=== PATIENT | male | born 1975 | race Caucasian/White ===

== ENCOUNTER 2023-11-18 06:40 | Inpatient (IN) | payer MEDICAID ==
[~2023-11-18] VITALS: Ht 175.3 cm; Wt 104.3 kg
[2023-11-18] VITALS (8 sets, daily range): BP systolic 125–148; BP diastolic 73–81; PULSE 82–108; RESP 18–22; TEMP 96.8–98.2; O2SAT 95–97
[2023-11-18] MEDS: METHYLPREDNISOLONE SOD SUCC 125MG/2ML (ACT-O-VIAL) IV STA (07:02)
[2023-11-18] MEDS: ASPIRIN 81MG TABLET PO ONE (07:02)
[2023-11-18] MEDS: IPRATROPIUM BROMIDE (0.02%) 0.5MG/2.5ML NEB HHN STA (07:32)
[2023-11-18] MEDS: ALBUTEROL (0.083%) 2.5MG/3ML NEB HHN SCH (07:32)
[2023-11-18 07:51] LABS: CHLORIDE 88 mEq/L (98-107); POTASSIUM 3.4 mEq/L (3.5-5.1); SODIUM 125 mEq/L (136-145)
[2023-11-18 07:52] LABS: CARBON DIOXIDE 30 mEq/L (21-32)
[2023-11-18 07:53] LABS: CALCIUM 9.1 mg/dL (8.7-10.4)
[2023-11-18 07:56] LABS: PARTIAL THROMBOPLASTIN TIME 29.6 sec (23.4-31.0); PROTHROMBIN TIME 11.4 sec (9.6-11.0)
[2023-11-18 07:57] LABS: CREATININE 0.7 mg/dL (0.6-1.3); GLUCOSE 135 mg/dL (70-105)
[2023-11-18 07:58] LABS: LACTIC ACID 2.5 mmol/L (0.4-2.0); TROPONIN I HIGH SENSITIVITY 13 ng/L (3.0-53); UREA NITROGEN BLOOD 17 mg/dL (9-23)
[2023-11-18] MEDS: AZITHROMYCIN 500MG/250ML 250 ML IV SCH (08:01)
[2023-11-18 08:14] LABS: BASOPHILS % 0.3 % (0.0-2.0); DIFFERENTIAL COMMENT 0; HEMATOCRIT. 31.5 % (42.0-52.0); HEMOGLOBIN. 10.6 g/dL (14.0-18.0); LYMPHOCYTES % 10.7 % (20.0-50.0); MEAN CORPUSCULAR HEMOGLOBIN 24.8 pg (28.0-32.0); MEAN CORPUSCULAR HGB CONC 33.6 g/dL (31.0-37.0); MEAN CORPUSCULAR VOLUME 73.9 fL (80.0-94.0); MEAN PLATELET VOLUME 7.5 fl (7.4-10.4); MONOCYTES % 1.4 % (2.0-8.0); NEUTROPHILS % 87.6 % (40.0-76.0); PLATELET 264 x1000/uL (130-400); RED BLOOD CELL COUNT 4.26 mill/uL (4.7-6.1); RED CELL DISTRIBUTION WIDTH 17.6 % (11.6-14.6); WHITE BLOOD COUNT 7.5 x1000/uL (4.5-11.0)
[2023-11-18 08:44] LABS: ALANINE AMINOTRANSFERASE 54 IU/L (10-49); ASPARTATE AMINOTRANSFERASE 113 IU/L (<34)
[2023-11-18 08:45] LABS: ALBUMIN 3.9 g/dL (3.2-4.8); BILIRUBIN DIRECT 0.4 mg/dL (<=3.0); BILIRUBIN TOTAL 0.7 mg/dL (0.1-1.0); PROTEIN TOTAL 7.1 g/dL (6.0-8.3)
[2023-11-18] MEDS: CEFTRIAXONE 2GM/50ML 50 ML IV ONE (09:05)
[2023-11-18 09:11] LABS: BG BASE EXCESS 5.8 mmol/L (-2.0-2.0); BG CARBOXYHEMOGLOBIN 0.3 % (0.5-1.5); BG DEOXYHEMOGLOBIN 2.3 % (0.0-5.0); BG FRACTION INSPIRED OXYGEN 21; BG HCO3 ACT 29.6 mmol/L (22.0-26.0); BG METHEMOGLOBIN 0.5 % (0.0-1.5); BG OXYGEN SATURATION 97.7 % (92.0-98.5); BG OXYHEMOGLOBIN 96.9 % (94.0-97.0); BG PCO2 40.2 mmHg (35.0-45.0); BG PH 7.485 (7.350-7.450); BG PO2 90.1 mmHg (75.0-100.0); BG SAMPLE SITE RIGHT BRACHIAL; BG VENT MODE ROOM AIR
[2023-11-18] MEDS: SODIUM CHLORIDE 0.9% 1000ML BAG (SEPSIS BOLUS) IV ONE (09:44)
[2023-11-18] MEDS ORDERED: NITROGLYCERIN 50MG PREMIX 250 ML IV ONE (10:00)
[2023-11-18 10:19] LABS: CLARITY URINE CLEAR (CLEAR); COLOR URINE DARK YELLOW (YELLOW); GLUCOSE URINE NEGATIVE (NEGATIVE); KETONES URINE NEGATIVE (NEGATIVE); LEUKOCYTE ESTERASE URINE 1+ (NEGATIVE); NITRITE URINE NEGATIVE (NEGATIVE); OCCULT BLOOD URINE TRACE (NEGATIVE); PH URINE 6.5 (4.5-8.0); PROTEIN URINE 2+ (NEGATIVE); SPECIFIC GRAVITY URINE 1.017 (1.005-1.030); UROBILINOGEN URINE >8.0 E.U./dL (0.2-1.0)
[2023-11-18 10:28] LABS: TROPONIN I HIGH SENSITIVITY 5 ng/L (3.0-53)
[2023-11-18 10:34] LABS: COARSE GRANULAR CASTS URINE 0-5 /lpf; FINE GRANULAR CASTS URINE 0-5 /lpf
[2023-11-18 10:42] LABS: SQUAMOUS EPITHELIAL CELL URINE FEW /lpf (RARE/1+); WBC URINE 0-2 /hpf (0-2)
[2023-11-18 10:43] LABS: RBC URINE 0-2 /hpf (0-2)
[2023-11-18 10:44] LABS: BACTERIA URINE TRACE
[2023-11-18] MEDS: LORAZEPAM 2MG/ML INJ IV NR (10:47)
[2023-11-18] MEDS ORDERED: ONDANSETRON HCL 4MG/2ML INJ IV PRN (16:00)
[2023-11-18] MEDS ORDERED: KETOROLAC 15MG/ML VIAL IV PRN (16:00)
[2023-11-18] MEDS: IPRATROPIUM/ALBUTEROL 0.5-3(2.5)MG/3ML NEB HHN SCH (21:12)
[2023-11-19] VITALS (10 sets, daily range): BP systolic 115–153; BP diastolic 85–90; PULSE 79–98; RESP 18–20; TEMP 96.1–98; O2SAT 95–99
[2023-11-19] MEDS: VANCOMYCIN 1,750 MG in DEXT 5% WATER 500 ML IV NR (02:07)
[2023-11-19] MEDS: ENOXAPARIN 30MG/0.3ML SYR SUBCUT SCH (08:54)
[2023-11-19] MEDS: CEFTRIAXONE 1GM/50ML 50 ML IV SCH (08:54)
[2023-11-19] MEDS: VANCOMYCIN 1.25GM PMX (XELLIA) 250 ML IV SCH (09:12)
[2023-11-19] MEDS ORDERED: LEVO750T68 MT (14:04)
[2023-11-19 16:56] LABS: HEMATOCRIT. 32.9 % (42.0-52.0); HEMOGLOBIN. 10.8 g/dL (14.0-18.0); MEAN CORPUSCULAR HEMOGLOBIN 24.4 pg (28.0-32.0); MEAN CORPUSCULAR HGB CONC 32.9 g/dL (31.0-37.0); MEAN CORPUSCULAR VOLUME 73.9 fL (80.0-94.0); MEAN PLATELET VOLUME 7.7 fl (7.4-10.4); PLATELET 317 x1000/uL (130-400); RED BLOOD CELL COUNT 4.45 mill/uL (4.7-6.1); RED CELL DISTRIBUTION WIDTH 18.3 % (11.6-14.6); WHITE BLOOD COUNT 15.1 x1000/uL (4.5-11.0)
[2023-11-19 17:05] LABS: DIFFERENTIAL COMMENT 1
[2023-11-19 17:11] LABS: CHLORIDE 96 mEq/L (98-107); SODIUM 132 mEq/L (136-145)
[2023-11-19 17:12] LABS: CALCIUM 8.8 mg/dL (8.7-10.4); CARBON DIOXIDE 30 mEq/L (21-32)
[2023-11-19 17:17] LABS: CREATININE 0.6 mg/dL (0.6-1.3); GLUCOSE 140 mg/dL (70-105); UREA NITROGEN BLOOD 20 mg/dL (9-23)
[2023-11-19 17:39] LABS: HEPATITIS B SURFACE ANTIGEN NEGATIVE (Negative)
[2023-11-19 18:00] LABS: HEPATITIS C AB NON REACTIVE (Neg) (Negative)
[2023-11-19 18:03] LABS: NUCLEATED RED BLOOD CELLS 2 /100 WBC; PLATELET ESTIMATE NORMAL
[2023-11-20] VITALS: BP 152/83; PULSE 86; RESP 20; TEMP 97.9
[2023-11-20 04:00] VITALS: BP 147/87; PULSE 87; RESP 20; TEMP 96.9
[2023-11-20 07:35] LABS: CHLORIDE 96 mEq/L (98-107); SODIUM 136 mEq/L (136-145)
[2023-11-20 07:36] LABS: CARBON DIOXIDE 31 mEq/L (21-32)
[2023-11-20 07:37] LABS: CALCIUM 8.8 mg/dL (8.7-10.4)
[2023-11-20 07:41] LABS: CREATININE 0.5 mg/dL (0.6-1.3)
[2023-11-20 07:42] LABS: GLUCOSE 81 mg/dL (70-105); UREA NITROGEN BLOOD 19 mg/dL (9-23)
[2023-11-20 07:56] VITALS: BP 158/94; PULSE 63; RESP 20; TEMP 98.1
[2023-11-20 07:56] LABS: POTASSIUM 2.8 mEq/L (3.5-5.1)
[2023-11-20] MEDS ORDERED: KETOROLAC 30MG/ML VIAL IV PRN (08:45)
[2023-11-20] MEDS: ASPIRIN 81MG TABLET PO SCH (09:24)
[2023-11-20] MEDS: POTASSIUM CHLORIDE 20MEQ TABLET SR PO NR ×2 (09:24→12:00)
[2023-11-20] MEDS ORDERED: NICOTINE 14MG PATCH TD SCH (10:15)
[2023-11-20 11:36] VITALS: BP 163/96; PULSE 87; RESP 20; TEMP 98.3
[2023-11-20 13:01] VITALS: BP 159/95; PULSE 87; TEMP 98.3; O2SAT 96
[2023-11-20 13:02] VITALS: BP 159/95
== END 2023-11-20 13:20 | disposition home or self-care (01) | DRG 133 ==
LOC: ER 06:40 → 5WST 09:41 → EDBEDREQ 09:43 → EDBEDREQTM 09:43 → EDBEDREQSVC 10:06 → 7WST 13:05
PROVIDERS: ADMIT Internal Medicine; ATTEND Internal Medicine
DX: J96.00 Acute respiratory failure, unspecified whether with hypoxia or hypercapnia (principal); J18.9 Pneumonia, unspecified organism; L97.912 Non-pressure chronic ulcer of unspecified part of right lower leg with fat layer exposed; E87.1 Hypo-osmolality and hyponatremia; L03.115 Cellulitis of right lower limb; E66.9 Obesity, unspecified; F17.200 Nicotine dependence, unspecified, uncomplicated; I10 Essential (primary) hypertension; Z68.34 Body mass index [BMI] 34.0-34.9, adult; D64.9 Anemia, unspecified; E87.6 Hypokalemia; Z59.00 Homelessness unspecified
CPT/HCPCS: 36415; 36600; 71045; 80048; 80076; 80202; 81003; 82375; 82805; 82962; 83605; 83880; 84484; 85025; 86705; 87070; 87340; 93005; 94640; 99291; J0456; J0696; J1650; J2060; J2930; J3370; J3490; J7030; J7060